=== PATIENT | male | born 1980 | race Caucasian/White ===

== ENCOUNTER 2023-06-19 22:03 | Emergency (ER) | payer SELFPAY ==
[~2023-06-19] VITALS: Ht 172.7 cm; Wt 73.0 kg
[2023-06-19 22:32] VITALS: BP 160/98; PULSE 100; RESP 16; TEMP 98.8; O2SAT 97
== END 2023-06-19 22:45 | disposition left against medical advice (07) ==
LOC: ER 22:03
DX: T63.301A Toxic effect of unspecified spider venom, accidental (unintentional), initial encounter (principal); Z53.21 Procedure and treatment not carried out due to patient leaving prior to being seen by health care provider; Y92.9 Unspecified place or not applicable
CPT/HCPCS: 99281